=== PATIENT | male | born 1980 | race Caucasian/White ===

== ENCOUNTER 2019-09-20 21:47 | Emergency (ER) | payer SELFPAY ==
[~2019-09-20] VITALS: Ht 177.8 cm; Wt 70.0 kg
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
[2019-09-20] MEDS ORDERED: IV NORMAL SALINE 1000ML BAG 1,000 ML IV SCH (22:30)
[2019-09-20] MEDS ORDERED: ONDANSETRON PF 4 MG/2 ML VIAL. IVP ONE (22:30)
[2019-09-20] MEDS: fentaNYL PF VIAL 100 MCG/2 ML VIAL IV PRN (22:40)
[2019-09-20 22:54] LABS: BASO # 0.1 x10^3/uL (0.0-0.2); BASO % 0 % (0-3); EOS % 0 % (0-3); HEMATOCRIT 45.6 % (39.0-53.0); HEMOGLOBIN 15.5 g/dL (13.0-17.5); LYMPH # 1.5 x10^3/uL (1.0-4.8); LYMPH % 7 % (24-48); MEAN CORPUSCULAR HEMOGLOBIN 30 pg (25-35); MEAN CORPUSCULAR HGB CONC 34 g/dL (31-37); MEAN CORPUSCULAR VOLUME 89 fL (79-100); MONO # 1.5 x10^3/uL (0.0-1.1); MONO % 7 % (0-9); NEUT % 86 % (31-73); PLATELET COUNT 592 x10^3/uL (140-400); RED BLOOD COUNT 5.15 x10^6/uL (4.30-5.70); RED CELL DISTRIBUTION WIDTH 13.5 % (11.5-14.5); WHITE BLOOD COUNT 22.1 x10^3/uL (4.0-11.0)
[2019-09-20 22:56] LABS: BILIRUBIN,URINE NEGATIVE (NEG); CLARITY,URINE CLEAR; NITRITE,URINE NEGATIVE (NEG); PH,URINE 6.5 (<5.0-8.0); PROTEIN,URINE NEGATIVE (NEG-TRACE); UROBILINOGEN,URINE 0.2 mg/dL (0.2 mg/dL)
[2019-09-20 23:04] LABS: BACTERIA,URINE MANY /HPF (0-FEW); COLOR,URINE STRAW; SQUAMOUS EPITHELIAL CELL,UR OCC /LPF; WBC,URINE >40 /HPF (0-4)
[2019-09-20 23:46] LABS: GFR 82.3; POTASSIUM 3.5 mmol/L (3.5-5.1)
[2019-09-20 23:51] LABS: ALBUMIN 2.5 g/dL (3.4-5.0); ALBUMIN/GLOBULIN RATIO 0.6 (1.0-1.7); TOTAL BILIRUBIN 0.4 mg/dL (0.2-1.0)
[2019-09-20 23:57] LABS: % BANDS 15 % (0-9); % LYMPHS 2 % (24-48); % MONOS 5 % (0-10); % SEGS 78 % (35-66); PLT ESTIMATE INCREASED (ADEQUATE)
[2019-09-21] MEDS ORDERED: cefTRIAXone IV Push 1 GM VIAL. IVP ONE
--- NOTE | 2019-09-21 00:07 | RAD ---
Duplex scrotal ultrasound 09/20/2019 CLINICAL HISTORY: Right scrotal pain. TECHNIQUE: Using a combination of real-time ultrasound imaging and color-flow and pulse Doppler imaging techniques, duplex evaluation of the scrotal sac and its contents was performed. Multiple images were obtained. FINDINGS: Both testicles are within normal limits in size and echogenicity. The right testicle measures 4.7 x 3.1 x 2.3 cm in longitudinal, transverse and AP dimensions. The left testicle measures 4.9 x 2.3 x 1.9 cm in size. No focal abnormality of either testicle is seen. Normal color-flow and pulse Doppler imaging to both testicles is noted. The right epididymis is enlarged and heterogeneous with increased color flow Doppler noted. These findings are consistent with epididymitis. The left epididymis is within normal limits. No hydrocele or varicocele is seen. Diffuse wall thickening and edema is seen involving the right scrotal wall. No abnormal fluid collection is seen to suggest evidence of an abscess. IMPRESSION: Findings consistent with right epididymitis. No abscess is seen. Electronically signed by: Naman Mancia MD (09/21/2019 12:04 AM) [id number]
[2019-09-21] MEDS: fentaNYL PF VIAL 100 MCG/2 ML VIAL IV PRN (00:15)
[2019-09-21] MEDS ORDERED: OXYC1TAB15 PO (00:31)
[2019-09-21] MEDS ORDERED: CIPR500T PO (00:31)
[2019-09-21 01:00] VITALS: BP 111/77
== END 2019-09-21 01:14 | disposition home or self-care (01) ==
LOC: ER 21:47
DX: N45.1 Epididymitis (principal); R10.30 Lower abdominal pain, unspecified; R11.0 Nausea; F17.200 Nicotine dependence, unspecified, uncomplicated; Z90.89 Acquired absence of other organs; Z90.49 Acquired absence of other specified parts of digestive tract
CPT/HCPCS: 36415; 76870; 80053; 81001; 85007; 85025; 87086; 96365; 96375; 99285; J0696; J1956; J2405; J3010; J7030

== ENCOUNTER 2020-06-20 16:48 | Emergency (ER) | payer SELFPAY ==
[~2020-06-20] VITALS: Ht 177.8 cm; Wt 72.0 kg
[~2020-06-20 16:48] MED LIST: CIPR500T2 PO; OXYC1TAB15 PO
[2020-06-20] MEDS ORDERED: cefTRIAXone IM 500 MG VIAL. IM ONE (17:30)
[2020-06-20] MEDS ORDERED: HYDROcodone/APAP 5/325MG 1 TAB TABLET PO ONE (17:30)
--- NOTE | 2020-06-20 18:09 | RAD ---
EXAM: Scrotal sonogram. HISTORY: Left testicular pain and swelling. TECHNIQUE: South scale and color Doppler sonographic imaging of the testes with spectral waveform anal ysis was performed. COMPARISON: None. FINDINGS: The testes are normal in size. There is relative increased blood flow within the left testi s. No focal testicular parenchymal lesion is seen. The left epididymis is enlarged and hyperemic. The re is no varicocele or hydrocele. IMPRESSION: Findings suggesting left orchitis and left epididymitis. Electronically signed by: Ghazal Joy MD (06/20/2020 6:07 PM) [facility]
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
[2020-06-20 18:38] LABS: BARBITURATES NEG (NEG); BENZODIAZEPINES NEG (NEG); CANNABINOIDS POS (NEG); COCAINE NEG (NEG); METHADONE NEG (NEG); OPIATES NEG (NEG); PHENCYCLIDINE NEG (NEG)
[2020-06-20 18:40] LABS: BASO # 0.1 x10^3/uL (0.0-0.2); BASO % 1 % (0-3); EOS # 0.3 x10^3/uL (0.0-0.7); EOS % 2 % (0-3); HEMATOCRIT 45.8 % (39.0-53.0); HEMOGLOBIN 16.1 g/dL (13.0-17.5); LYMPH # 4.3 x10^3/uL (1.0-4.8); LYMPH % 22 % (24-48); MEAN CORPUSCULAR HEMOGLOBIN 30 pg (25-35); MEAN CORPUSCULAR HGB CONC 35 g/dL (31-37); MEAN CORPUSCULAR VOLUME 87 fL (79-100); MONO # 1.7 x10^3/uL (0.0-1.1); MONO % 9 % (0-9); NEUT # 13.1 x10^3/uL (1.8-7.7); NEUT % 67 % (31-73); PLATELET COUNT 656 x10^3/uL (140-400); RED BLOOD COUNT 5.29 x10^6/uL (4.30-5.70); RED CELL DISTRIBUTION WIDTH 13.7 % (11.5-14.5); WHITE BLOOD COUNT 19.5 x10^3/uL (4.0-11.0)
[2020-06-20 18:45] LABS: AMPHETAMINE/METHAMPHETAMINE POS (NEG)
[2020-06-20 18:54] LABS: CALCIUM 8.7 mg/dL (8.5-10.1); CREATININE 0.9 mg/dL (0.7-1.3)
[2020-06-20 19:01] LABS: ALBUMIN 3.1 g/dL (3.4-5.0); ALBUMIN/GLOBULIN RATIO 0.7 (1.0-1.7); TOTAL BILIRUBIN 0.2 mg/dL (0.2-1.0); TOTAL PROTEIN 7.7 g/dL (6.4-8.2)
[2020-06-20 19:01] LABS: BILIRUBIN,URINE NEGATIVE (NEG); CLARITY,URINE CLEAR; COLOR,URINE YELLOW; NITRITE,URINE NEGATIVE (NEG); PROTEIN,URINE NEGATIVE (NEG-TRACE); UROBILINOGEN,URINE 0.2 mg/dL (0.2 mg/dL)
[2020-06-20 19:09] LABS: BACTERIA,URINE FEW /HPF (0-FEW); WBC,URINE TNTC /HPF (0-4)
[2020-06-20] MEDS ORDERED: IV NORMAL SALINE 1000ML BAG 1,000 ML IV ONE (19:15)
[2020-06-20 19:17] LABS: % ATYL 3 % (0-0); % BANDS 2 % (0-9); % LYMPHS 18 % (24-48); % MONOS 7 % (0-10); % SEGS 70 % (35-66)
[2020-06-20 19:18] LABS: PLT ESTIMATE INCREASED (ADEQUATE); TOXIC VACUOLATION SLIGHT
[2020-06-20 19:19] LABS: TOXIC GRANULATION SLIGHT
[2020-06-20] MEDS ORDERED: HYDR-2761 PO (19:21)
[2020-06-20] MEDS ORDERED: DOXY100T PO (19:21)
[2020-06-20 20:00] VITALS: BP 124/77
== END 2020-06-20 20:17 | disposition home or self-care (01) ==
LOC: ER 16:48
DX: N45.3 Epididymo-orchitis (principal); F15.10 Other stimulant abuse, uncomplicated; R60.0 Localized edema; R10.2 Pelvic and perineal pain; L53.9 Erythematous condition, unspecified; F17.200 Nicotine dependence, unspecified, uncomplicated; Z90.49 Acquired absence of other specified parts of digestive tract; Z88.6 Allergy status to analgesic agent; Z90.89 Acquired absence of other organs; Z98.890 Other specified postprocedural states
CPT/HCPCS: 36415; 76870; 80053; 80307; 81001; 83605; 85007; 85025; 87086; 87491; 87591; 96360; 96372; 99284; J0696; J7030